=== PATIENT | female | born 1950 | race Caucasian/White ===

== ENCOUNTER 2018-07-09 17:33 | Emergency (ER) | payer MEDICARE, OTHER ==
[~2018-07-09] VITALS: Ht 165.1 cm; Wt 90.0 kg
[~2018-07-09 17:33] MED LIST: VALS160T20
[2018-07-09 17:36] VITALS: Ht 165.1 cm; Wt 90.0 kg
[2018-07-09] MEDS ORDERED: ONDANSETRON 4 MG INJ IV STA (17:40)
[2018-07-09] MEDS ORDERED: SOD CHLORIDE 0.9% 500 ML IV STA (17:40)
[2018-07-09] MEDS ORDERED: MAGNESIUM SULFATE 2 GM/50 ML 50 ML IVPB ONE (18:00)
--- NOTE | 2018-07-09 18:05 | ERD ---
ER Documentation Chief Complaint Chief Complaint biba, from home, c/o sob and gen weakness x 1 hr HPI This is a 67-year-old woman complaining of palpitations, shortness of breath, dizziness beginning this morning, she states she has had multiple similar symptoms in the past associated with anxiety, she used lorazepam prior to arriv al and is seen that made her dizziness worse. Her adult children were later at the bedside and state she has had multiple similar episodes but they were not at home to reassure her comfort her so they told her to call 911 after the symptoms went on for over an hour. Patient denies loss of consciousness, no fevers or chills, no headache or blurry vision, no slurred speech. Patient was transporte d here anxious without other complications ROS All systems reviewed and are negative except as per history of present illness. Medications Home Meds Reported Medications Valsartan* (Diovan*) 160 Mg Tablet 08/14/10 Allergies Allergies: Coded Allergies: Penicillins (Verified Allergy, Mild, RASH, 08/14/10) PMhx/Soc Obesity, anxiety, hypertension, lymphoma, history of chronic PVCs History of Surgery: No Anesthesia Reaction: No Hx Neurological Disorder: No Hx Respiratory Disorders: No Hx Cardiac Disorders: Yes (HTN) Hx Psychiatric Problems: No Hx Alcohol Use: No Hx Substance Use: No Hx Tobacco Use: No Smoking Status: Never smoker FmHx Family History: No diabetes Physical Exam Vitals Vital Signs Date Temp Pulse Resp B/P (MAP) Pulse Ox O2 O2 Flow FiO2 Time Delivery Rate 07/09/18 98.3 85 17 140/78 99 Room Air 19:40 (98) 07/09/18 98.7 79 14 108/64 94 17:36 (79) 07/09/18 63 24 108/64 95 Nasal 4.0 17:35 (79) Cannula 07/09/18 Nasal 4.0 17:35 Cannula 07/09/18 98.7 79 14 108/64 95 17:34 (79) Physical Exam GENERAL: Well-developed, well-nourished, anxious, afebrile HEENT: Moist mucous membranes, pink conjunctiva, no cervical spine tenderness or step-off deformities, no goiter, no jaundice or icterus, extraocular movements intact without pain. No submandibular induration, and no pharyngeal erythema NEURO: Alert and oriented 3, cranial nerves II through XII intact bilaterally, pupils equal round reactive to light, no focal deficits or facial asymmetry, sensation intact distally Strength 5/5 in upper and lower extremities bilaterally CARDIAC: Regular rate and rhythm, no murmurs rubs or gallops LUNGS: Clear bilaterally no wheezing crackles or stridor ABDOMEN: Soft nontender, no guarding, no rigidity, no rebound, no psoas sign no obturator sign. Normoactive bowel sounds SKIN: Warm and dry to touch, no abrasions, contusions, or hematomas, no lacerations, no ecchymosis, no target lesions, and without ulcers EXTREMITIES: No clubbing cyanosis or edema, calves are bilaterally symmetrical, no Homans sign, no popliteal cord sign. Distal pulses equal and bilateral PSYCH: Anxious Result Diagram: 07/09/18 1741 07/09/18 1741 Results 24 hrs Laboratory Tests Test 07/09/18 17:36 07/09/18 17:41 07/09/18 18:05 Bedside Glucose 132 mg/dL White Blood Count 7.3 10^3/ul Red Blood Count 5.27 10^6/ul Hemoglobin 14.5 g/dl Hematocrit 44.0 % Mean Corpuscular Volume 83.5 fl Mean Corpuscular Hemoglobin 27.5 pg Mean Corpuscular 33.0 g/dl Hemoglobin Concent Red Cell Distribution Width 12.3 % Platelet Count 209 10^3/UL Mean Platelet Volume 9.9 fl Immature Granulocytes % 0.400 % Neutrophils % 56.0 % Lymphocytes % 33.9 % Monocytes % 9.0 % Eosinophils % 0.3 % Basophils % 0.4 % Nucleated Red Blood Cells % 0.0 /100WBC Immature Granulocytes # 0.030 10^3/ul Neutrophils # 4.1 10^3/ul Lymphocytes # 2.5 10^3/ul Monocytes # 0.7 10^3/ul Eosinophils # 0.0 10^3/ul Basophils # 0.0 10^3/ul Nucleated Red Blood Cells # 0.0 10^3/ul Sodium Level 139 mmol/L Potassium Level 3.8 mmol/L Chloride Level 104 mmol/L Carbon Dioxide Level 22 mmol/L Anion Gap 13 Blood Urea Nitrogen 14 mg/dl Creatinine 0.58 mg/dl Est Glomerular Filtrat > 60 mL/min Rate mL/min Glucose Level 132 mg/dl Calcium Level 10.1 mg/dl Total Bilirubin 0.4 mg/dl Direct Bilirubin 0.00 mg/dl Indirect Bilirubin 0.4 mg/dl Aspartate Amino Transf (AST/SGOT) 23 IU/L Alanine 23 IU/L Aminotransferase (ALT/SGPT) Alkaline Phosphatase 54 IU/L Troponin I 0.025 ng/ml Total Protein 7.3 g/dl Albumin 4.4 g/dl Globulin 2.90 g/dl Albumin/Globulin Ratio 1.51 Lipase 126 U/L Urine Color STRAW Urine Clarity CLEAR Urine pH 7.0 Urine Specific [place] 1.004 Urine Ketones NEGATIVE mg/dL Urine Nitrite NEGATIVE mg/dL Urine Bilirubin NEGATIVE mg/dL Urine Urobilinogen NEGATIVE mg/dL Urine Leukocyte Esterase NEGATIVE Jacob/ul Urine Hemoglobin NEGATIVE mg/dL Urine Glucose NEGATIVE mg/dL Urine Total Protein NEGATIVE mg/dl Current Medications Medications Dose Sig/Bre Start Time Status Last (Trade) Ordered Route PRN Stop Time Admin Dose Reason Admin Sodium 500 ml @ Q1H STAT 07/09/18 DC 07/09/18 Chloride 500 mls/hr IV 17:40 07/09/18 18:09 18:39 Ondansetron 4 mg ONCE STAT 07/09/18 DC HCl (Zofran IV 17:40 07/09/18 Inj) 17:41 Magnesium 50 ml @ 25 ONCE ONCE 07/09/18 DC Sulfate mls/hr IVPB 18:00 07/09/18 18:02 Procedures/MDM IV line was established patient was placed on lunchroom monitor rhythm strip revealed a sinus rhythm at about 80 bpm with upright P and T waves. Patient was afebrile EKG performed, read by me revealed a normal sinus rhythm at 76 bpm, normal axis, intraventricular conduction delay QRS duration 104 ms, T wave inversions in inferior leads, no concerning ST elevations or depressions noted Chest X-ray 1V Interpreted by me: Soft Tissue: No acute abnormalities Bones: No acute abnormalities Mediastinum/Cardiac Silhouette/Lungs: No acute abnormalities CT scan of the brain negative for acute bleed mass or shift I administered 500 cc normal saline IV and Zofran 4 mg IV CBC and electrolytes were normal, liver function tests normal, troponin n egative, urinalysis negative for infection Differential diagnoses considered, included but not limited to acute coronary syndrome, pulmonary embolism, aortic dissection, abdominal aortic aneurysm, se psis, stroke, meningitis, encephalitis, pneumonia, appendicitis, cholecystitis, bowel obstruction, pyelonephritis, nephrolithiasis, cystitis, as well as metabolic, hematologic, and electrolyte abnormalities. As well as abscess, cellulitis, fractures, and dislocations. Patient feels much better at this time, and vital signs are normal, symptoms have improved. I did give strict instructions to return to the ED if symptoms continue or worsen, patient will otherwise follow-up with primary care phys ician. Patient understood instructions and agreed to plan. Disclaimer: Inadvertent spelling and grammatical errors are likely due to EHR/dictation software use and do not reflect on the overall quality of patient care. Also, please note that the electronic time recorded on this note does not necessarily reflect the actual time of the patient encounter. Departure Diagnosis: Primary Impression: Dizziness Additional Impression: Acute anxiety Condition: Good HAIR SANON MD July 09, 2018 18:05
[2018-07-09 19:40] VITALS: BP 140/78; PULSE 85; RESP 17
== END 2018-07-09 19:45 | disposition home or self-care (01) ==
LOC: E/R 17:33
DX: R42 Dizziness and giddiness (principal); F41.9 Anxiety disorder, unspecified; I10 Essential (primary) hypertension; E66.9 Obesity, unspecified; Z68.33 Body mass index [BMI] 33.0-33.9, adult
CPT/HCPCS: 36415; 70450; 71045; 80053; 81003; 82962; 83690; 84484; 85025; 93005; 99285; J2405; J7040; J3475